=== PATIENT | female | born 1945 | race Caucasian/White ===

== ENCOUNTER → 2019-04-15 | Day surgery (SDC) | payer BC ==
[~2019-04-15] VITALS: Ht 157.5 cm; Wt 73.5 kg
[~2019-04-15] MED LIST: ACETAMINOPHEN 500 MG TAB PO PRN; ANGIOMAX 250 MG VIAL IV ONE; ASPI-404 PO; ATOR1TAB PO; CLOP75TA28 PO; FAMO-12 PO; FURO20TA3 PO; HEPARIN SODIUM (PORCINE) 5000 UNITS/ML 1ML VIAL ONE; HYDROcodone-ACET 5/325MG TAB PO PRN; IODIXANOL 320MG/ML 100ML BTL IV ONE; IOHEXOL 350 MG/ML 100ML IJ ONE; LIDOCAINE 2%HCL (LOCAL ANESTH.) INJ 20ML MDV ONE; LISI2.5T47 PO; METO25TA5 PO; MIDAZOLAM HCL 1MG/1ML-2 ML VIAL ONE; ONDANSETRON HCL 4 MG/2 ML VIAL IV PRN; PAR20T PO; POTA10TA51 PO; SODIUM CHL 0.9% 0 ML ONE; SODIUM CHL 0.9% 500 ML IV ONE; VERAPAMIL 2.5MG/ML INJ 2ML VIAL IV ONE; fentaNYL CITRATE 100 MCG/2 ML VL ONE
== END | disposition home or self-care (01) ==
LOC: CATH 06:19
PROVIDERS: ATTEND Internal Medicine
DX: I25.10 Atherosclerotic heart disease of native coronary artery without angina pectoris (principal); I10 Essential (primary) hypertension; E78.5 Hyperlipidemia, unspecified; I25.2 Old myocardial infarction; Z87.891 Personal history of nicotine dependence; Z79.82 Long term (current) use of aspirin; Z79.899 Other long term (current) drug therapy; Z88.1 Allergy status to other antibiotic agents; Z95.5 Presence of coronary angioplasty implant and graft
CPT/HCPCS: 93458; C1769; C1894; J1644; J2250; J3010; Q9967; 99152